=== PATIENT | male | born 1980 | race African-American/Black ===

== ENCOUNTER 2018-10-02 14:46 | Emergency (ER) | payer SELFPAY | END 2018-10-02 16:10 | disposition left against medical advice (07) | LOC: ER 14:46 | DX: Z53.21 Procedure and treatment not carried out due to patient leaving prior to being seen by health care provider (principal) ==

== ENCOUNTER 2024-11-04 13:47 | Emergency (ER) | payer BC ==
[~2024-11-04] VITALS: Ht 182.9 cm; Wt 82.6 kg
[2024-11-04 14:03] VITALS: O2SAT 99
[2024-11-04] MEDS: IBUPROFEN 400MG TABLET PO ONE (14:54)
[2024-11-04 17:19] VITALS: BP 106/70; PULSE 80; RESP 17; TEMP 37.1; O2SAT 97
== END 2024-11-04 17:20 | disposition home or self-care (01) ==
LOC: ER 13:47
DX: S63.282A Dislocation of proximal interphalangeal joint of right middle finger, initial encounter (principal); Z88.0 Allergy status to penicillin; W22.09XA Striking against other stationary object, initial encounter; Y93.89 Activity, other specified; Y92.89 Other specified places as the place of occurrence of the external cause; Y99.8 Other external cause status
CPT/HCPCS: 73130; 26770; 99152; 99285; Z7610